=== PATIENT | male | born 1935 | race African-American/Black ===

== ENCOUNTER 2018-03-17 13:02 | Inpatient (IN) ==
[2018-03-17 14:13] LABS: Basophils % 0.4 % (0.0-0.8); Eosinophils # 0.3 10*3/uL (0.0-0.87); Eosinophils % 5.7 % (0.00-10.9); Hemoglobin 7.2 GM/DL (14.0-18.0); Immature Granulocytes % 0.4 %; Immature Granulocytes Absolute 0.02 #; Lymphocytes # 0.9 10*3/uL (1.4-4.0); Lymphocytes % 19.1 % (21.2-54.2); Mean Corpuscular HGB Conc 28.8 GM/DL (32-36); Mean Corpuscular Hemoglobin 22 PG (27-34); Mean Corpuscular Volume 77.9 FL (87-102); Mean Platelet Volume 10.2 FL (9.6-12.0); Monocytes # 0.5 10*3/uL (0.11-0.8); Monocytes % 10.4 % (1.7-12.7); Platelet Count 287 T/CUMM (130-400); Red Blood Count 3.21 MC/CUMM (3.8-5.5); Red Cell Distribution Width 16.7 % (9.3-17.3); White Blood Count 4.7 T/CUMM (4-12)
[2018-03-17 14:32] LABS: Hypochromasia 1+; Microcytosis 1+
[2018-03-17 14:33] LABS: Calcium 8.4 MG/DL (8.5-10.1); Osmolality,Calculated 284.7 MOS/KG (273-304); Potassium 4.8 MMOL/L (3.5-5.1); Target Cells Few
[2018-03-17] MEDS ORDERED: MORPHINE 4 MG/1 ML VIAL IV PRN (14:41)
[2018-03-17] MEDS ORDERED: POTASSIUM CHLORIDE 20 MEQ TABLET PO PRN (14:41)
[2018-03-17] MEDS ORDERED: DOCUSATE SODIUM 100 MG CAPSULE PO PRN (14:41)
[2018-03-17] MEDS ORDERED: MAGNESIUM SULF RIDER 2 GM in PREMIX 1 EACH IV PRN (14:41)
[2018-03-17] MEDS ORDERED: MAGNESIUM SULF RIDER 4 GM in PREMIX 1 EACH IV PRN (14:41)
[2018-03-17] MEDS ORDERED: ACETAMINOPHEN 325 MG TABLET PO PRN (14:41)
[2018-03-17] MEDS ORDERED: ONDANSETRON 4 MG/2 ML VIAL IV PRN (14:41)
[2018-03-17] MEDS ORDERED: hydrALAZINE 20 MG/1 ML VIAL IV PRN (14:45)
[2018-03-17] MEDS ORDERED: diphenhydrAMINE CAP 25 MG CAPSULE PO ONE (14:50)
[2018-03-17] MEDS ORDERED: NALOXONE 0.4 MG/ML VIAL IV PRN (14:50)
[2018-03-17] MEDS ORDERED: DIAZEPAM 5 MG TABLET PO ONE (14:50)
[2018-03-17] MEDS ORDERED: FLUMAZENIL 1 MG/10 ML VIAL IV PRN (14:50)
[2018-03-17] MEDS ORDERED: LIDOCAINE 1%/EPI INJ 20 ML VIAL ONE (15:49)
[2018-03-17] MEDS ORDERED: HEPARIN/NACL 0.9% 2 UNITS/ML 500 ML IV ONE (15:49)
[2018-03-17] MEDS ORDERED: fentaNYL 100 MCG/2 ML VIAL ONE (15:51)
[2018-03-17] MEDS ORDERED: ceFAZolin 1,000 MG VIAL ONE (15:55)
[2018-03-17] MEDS ORDERED: MIDAZOLAM 2 MG/2 ML VIAL ONE (16:05)
[2018-03-17] MEDS: hydrALAZINE 25 MG TABLET PO SCH ×3 (17:18→21:20)
[2018-03-17 18:16] LABS: Troponin I 0.058 NG/ML (0.00-0.045)
[2018-03-17 18:39] LABS: Folate 6.6 NG/ML (5.4-24.0)
[2018-03-17 18:43] LABS: % Iron Saturation 4.2 % (18-50); Ferritin 10.8 ng/ml (26-388)
[2018-03-17] MEDS: DONEPEZIL 10 MG TABLET PO SCH (21:20)
[2018-03-17] MEDS: ZALEPLON 5 MG CAPSULE PO PRN (21:20)
[2018-03-17 21:41] LABS: Troponin I 0.055 NG/ML (0.00-0.045)
[2018-03-18 04:26] LABS: Basophils % 0.2 % (0.0-0.8); Eosinophils # 0.3 10*3/uL (0.0-0.87); Eosinophils % 4.4 % (0.00-10.9); Hematocrit 20.7 VOL% (42.0-52.0); Immature Granulocytes % 0.5 %; Immature Granulocytes Absolute 0.03 #; Lymphocytes # 0.7 10*3/uL (1.4-4.0); Lymphocytes % 11.1 % (21.2-54.2); Mean Corpuscular HGB Conc 29.5 GM/DL (32-36); Mean Corpuscular Hemoglobin 23 PG (27-34); Mean Platelet Volume 9.3 FL (9.6-12.0); Monocytes # 0.5 10*3/uL (0.11-0.8); Monocytes % 8.1 % (1.7-12.7); Neutrophils # 4.8 10*3/uL (1.4-7.4); Neutrophils % 75.7 % (38.7-73.9); Platelet Count 248 T/CUMM (130-400); Red Blood Count 2.69 MC/CUMM (3.8-5.5); Red Cell Distribution Width 16.8 % (9.3-17.3); White Blood Count 6.3 T/CUMM (4-12)
[2018-03-18 04:34] LABS: Hemoglobin 6.1 GM/DL (14.0-18.0)
[2018-03-18 04:46] LABS: Calcium 8.3 MG/DL (8.5-10.1); Osmolality,Calculated 286.7 MOS/KG (273-304)
[2018-03-18] MEDS ORDERED: SODIUM CHLORIDE 0.9% 1,000 ML IV PRN (04:52)
[2018-03-18 04:58] LABS: Albumin 2.6 G/DL (3.4-5.0); Bilirubin,Total 0.8 MG/DL (0.2-1.0); Calcium 8.4 MG/DL (8.5-10.1); Osmolality,Calculated 284.7 MOS/KG (273-304); Potassium 5.2 MMOL/L (3.5-5.1); Risk Ratio 2.04; Total Protein 6.8 G/DL (6.4-8.3); VLDL CHOLESTEROL 11.6 MG/DL
[2018-03-18] MEDS: FERROUS SULFATE 325 MG TABLET PO SCH ×3 (08:59→20:35)
[2018-03-18] MEDS: PANTOPRAZOLE 40 MG TABLET PO SCH (08:59)
[2018-03-18] MEDS: hydrALAZINE 25 MG TABLET PO SCH (08:59)
[2018-03-18] MEDS ORDERED: amLODIPine 5 MG TABLET PO SCH (10:30)
[2018-03-18] MEDS: CARVEDILOL 6.25 MG TABLET PO SCH ×2 (11:07→20:35)
[2018-03-18] MEDS ORDERED: TUBERCULIN SKIN TEST 0.1 ML SYRINGE INTRADERM ONE (13:31)
[2018-03-18] MEDS: ZALEPLON 5 MG CAPSULE PO PRN (20:34)
[2018-03-18] MEDS: DONEPEZIL 10 MG TABLET PO SCH (20:35)
[2018-03-18] MEDS: DOXAZOSIN 1 MG TABLET PO SCH (20:35)
[2018-03-19 05:10] LABS: Hematocrit 29.8 VOL% (42.0-52.0); Hemoglobin 9.3 GM/DL (14.0-18.0)
[2018-03-19 08:44] LABS: Basophils % 0.3 % (0.0-0.8); Eosinophils # 0.2 10*3/uL (0.0-0.87); Eosinophils % 3.8 % (0.00-10.9); Hematocrit 31.4 VOL% (42.0-52.0); Hemoglobin 9.7 GM/DL (14.0-18.0); Immature Granulocytes % 0.3 %; Immature Granulocytes Absolute 0.02 #; Lymphocytes # 0.6 10*3/uL (1.4-4.0); Lymphocytes % 9.9 % (21.2-54.2); Mean Corpuscular HGB Conc 30.9 GM/DL (32-36); Mean Corpuscular Hemoglobin 24 PG (27-34); Mean Corpuscular Volume 77.9 FL (87-102); Mean Platelet Volume 9.3 FL (9.6-12.0); Monocytes # 0.5 10*3/uL (0.11-0.8); Monocytes % 7.6 % (1.7-12.7); Neutrophils # 4.8 10*3/uL (1.4-7.4); Neutrophils % 78.1 % (38.7-73.9); Platelet Count 217 T/CUMM (130-400); Red Blood Count 4.03 MC/CUMM (3.8-5.5); Red Cell Distribution Width 16.9 % (9.3-17.3); White Blood Count 6.1 T/CUMM (4-12)
[2018-03-19 09:00] LABS: Calcium 8.6 MG/DL (8.5-10.1); Osmolality,Calculated 278.8 MOS/KG (273-304); Potassium 4.7 MMOL/L (3.5-5.1)
[2018-03-19] MEDS: CLOPIDOGREL 75 MG TABLET PO SCH (09:04)
[2018-03-19] MEDS: amLODIPine 10 MG TABLET PO SCH (09:04)
[2018-03-19] MEDS: CARVEDILOL 6.25 MG TABLET PO SCH ×2 (09:04→23:37)
[2018-03-19] MEDS: PANTOPRAZOLE 40 MG TABLET PO SCH (09:04)
[2018-03-19] MEDS: FERROUS SULFATE 325 MG TABLET PO SCH ×3 (09:04→23:37)
[2018-03-19] MEDS: DONEPEZIL 10 MG TABLET PO SCH (23:37)
[2018-03-19] MEDS: DOXAZOSIN 1 MG TABLET PO SCH (23:37)
[2018-03-20 04:32] LABS: Basophils % 0.4 % (0.0-0.8); Eosinophils # 0.3 10*3/uL (0.0-0.87); Eosinophils % 4.6 % (0.00-10.9); Hemoglobin 8.3 GM/DL (14.0-18.0); Immature Granulocytes % 0.5 %; Immature Granulocytes Absolute 0.03 #; Lymphocytes # 0.7 10*3/uL (1.4-4.0); Mean Corpuscular HGB Conc 30.7 GM/DL (32-36); Mean Corpuscular Hemoglobin 24 PG (27-34); Mean Corpuscular Volume 77.6 FL (87-102); Mean Platelet Volume 9.5 FL (9.6-12.0); Monocytes # 0.6 10*3/uL (0.11-0.8); Neutrophils # 3.9 10*3/uL (1.4-7.4); Neutrophils % 71.5 % (38.7-73.9); Platelet Count 220 T/CUMM (130-400); Red Blood Count 3.48 MC/CUMM (3.8-5.5); Red Cell Distribution Width 17.1 % (9.3-17.3); White Blood Count 5.5 T/CUMM (4-12)
[2018-03-20 05:05] LABS: Calcium 8.2 MG/DL (8.5-10.1); Osmolality,Calculated 284.7 MOS/KG (273-304); Potassium 4.8 MMOL/L (3.5-5.1)
[2018-03-20] MEDS: CLOPIDOGREL 75 MG TABLET PO SCH (08:46)
[2018-03-20] MEDS: FERROUS SULFATE 325 MG TABLET PO SCH ×3 (08:46→20:36)
[2018-03-20] MEDS: amLODIPine 10 MG TABLET PO SCH (08:46)
[2018-03-20] MEDS: CARVEDILOL 6.25 MG TABLET PO SCH ×2 (08:46→23:21)
[2018-03-20] MEDS: PANTOPRAZOLE 40 MG TABLET PO SCH (08:47)
[2018-03-20] MEDS ORDERED: DOXAZOSIN 1 MG TABLET PO SCH (15:34)
[2018-03-20] MEDS: DONEPEZIL 10 MG TABLET PO SCH (20:36)
[2018-03-21 08:20] LABS: Basophils % 0.5 % (0.0-0.8); Eosinophils # 0.2 10*3/uL (0.0-0.87); Eosinophils % 4.8 % (0.00-10.9); Hematocrit 27.1 VOL% (42.0-52.0); Hemoglobin 8.4 GM/DL (14.0-18.0); Immature Granulocytes % 0.5 %; Immature Granulocytes Absolute 0.02 #; Lymphocytes # 0.7 10*3/uL (1.4-4.0); Lymphocytes % 15.9 % (21.2-54.2); Mean Corpuscular Hemoglobin 24 PG (27-34); Mean Corpuscular Volume 77.2 FL (87-102); Mean Platelet Volume 9.3 FL (9.6-12.0); Monocytes # 0.5 10*3/uL (0.11-0.8); Monocytes % 10.6 % (1.7-12.7); Neutrophils # 2.9 10*3/uL (1.4-7.4); Neutrophils % 67.7 % (38.7-73.9); Platelet Count 208 T/CUMM (130-400); Red Blood Count 3.51 MC/CUMM (3.8-5.5); Red Cell Distribution Width 16.9 % (9.3-17.3); White Blood Count 4.3 T/CUMM (4-12)
[2018-03-21 08:22] LABS: Calcium 8.5 MG/DL (8.5-10.1); Osmolality,Calculated 284.5 MOS/KG (273-304); Potassium 4.7 MMOL/L (3.5-5.1)
[2018-03-21] MEDS: CLOPIDOGREL 75 MG TABLET PO SCH (09:08)
[2018-03-21] MEDS: CARVEDILOL 6.25 MG TABLET PO SCH ×2 (09:09→23:10)
[2018-03-21] MEDS: amLODIPine 10 MG TABLET PO SCH (09:09)
[2018-03-21] MEDS: FERROUS SULFATE 325 MG TABLET PO SCH ×3 (09:09→23:10)
[2018-03-21] MEDS: PANTOPRAZOLE 40 MG TABLET PO SCH (09:09)
[2018-03-21] MEDS ORDERED: DOXAZOSIN 1 MG TABLET PO SCH (12:56)
[2018-03-21] MEDS: DONEPEZIL 10 MG TABLET PO SCH (23:10)
[2018-03-22 04:55] LABS: Basophils % 0.5 % (0.0-0.8); Eosinophils # 0.2 10*3/uL (0.0-0.87); Eosinophils % 5.2 % (0.00-10.9); Hematocrit 24.9 VOL% (42.0-52.0); Hemoglobin 7.6 GM/DL (14.0-18.0); Immature Granulocytes % 0.5 %; Immature Granulocytes Absolute 0.02 #; Lymphocytes # 0.7 10*3/uL (1.4-4.0); Lymphocytes % 16.8 % (21.2-54.2); Mean Corpuscular HGB Conc 30.5 GM/DL (32-36); Mean Corpuscular Hemoglobin 24 PG (27-34); Mean Corpuscular Volume 77.1 FL (87-102); Mean Platelet Volume 9.2 FL (9.6-12.0); Monocytes # 0.5 10*3/uL (0.11-0.8); Monocytes % 11.6 % (1.7-12.7); Neutrophils # 2.8 10*3/uL (1.4-7.4); Neutrophils % 65.4 % (38.7-73.9); Platelet Count 192 T/CUMM (130-400); Red Blood Count 3.23 MC/CUMM (3.8-5.5); Red Cell Distribution Width 17.2 % (9.3-17.3); White Blood Count 4.2 T/CUMM (4-12)
[2018-03-22 05:21] LABS: Calcium 8.2 MG/DL (8.5-10.1); Potassium 5.1 MMOL/L (3.5-5.1)
[2018-03-22] MEDS: CLOPIDOGREL 75 MG TABLET PO SCH (09:36)
[2018-03-22] MEDS: PANTOPRAZOLE 40 MG TABLET PO SCH (09:36)
[2018-03-22] MEDS: CARVEDILOL 6.25 MG TABLET PO SCH (09:36)
[2018-03-22] MEDS: FERROUS SULFATE 325 MG TABLET PO SCH (09:36)
[2018-03-22] MEDS: amLODIPine 10 MG TABLET PO SCH (09:36)
[2018-03-22 12:22] VITALS: BP 134/74
== END 2018-03-22 14:05 | DRG 259 ==
LOC: EDUNIT# → EDBD → N.ED 13:02 → N.EDINP 14:41 → N.CC 15:23 → N.TELES 16:32
PROVIDERS: ADMIT Internal Medicine Interventional Cardiology; ATTEND Hospitalist

== ENCOUNTER 2019-06-10 00:44 | Observation (INO) ==
[2019-06-10] MEDS ORDERED: PANTOPRAZOLE 40 MG VIAL IV STA (01:03)
[2019-06-10] MEDS ORDERED: ONDANSETRON 4 MG/2 ML VIAL IV STA (01:03)
[2019-06-10] MEDS ORDERED: SODIUM CHLORIDE 0.9% 500 ML IV STA (01:03)
[2019-06-10 01:19] LABS: Basophils % 0.2 % (0.0-0.8); Eosinophils # 0.3 10*3/uL (0.0-0.87); Eosinophils % 5.4 % (0.00-10.9); Hematocrit 22.6 VOL% (42.0-52.0); Immature Granulocytes % 0.2 %; Immature Granulocytes Absolute 0.01 #; Lymphocytes # 1.1 10*3/uL (1.4-4.0); Lymphocytes % 21.7 % (21.2-54.2); Mean Corpuscular HGB Conc 28.3 GM/DL (32-36); Mean Corpuscular Volume 79.9 FL (87-102); Mean Platelet Volume 8.9 FL (9.6-12.0); Monocytes % 11.7 % (1.7-12.7); Neutrophils % 60.8 % (38.7-73.9); Platelet Count 248 T/CUMM (130-400); Red Blood Count 2.83 MC/CUMM (3.8-5.5); Red Cell Distribution Width 17.2 % (9.3-17.3)
[2019-06-10 01:22] LABS: Hemoglobin 6.4 GM/DL (14.0-18.0)
[2019-06-10 01:31] LABS: PT Patient Result 10.8 SECS (9.8-11.9)
[2019-06-10 01:42] LABS: Alanine Aminotransferase 9 U/L (16-61); Albumin 2.8 G/DL (3.4-5.0); Alkaline Phosphatase 67 U/L (45-117); Amylase 288 U/L (25-115); Aspartate Amino Transferase 9 U/L (0-37); Bilirubin,Total < 0.39 MG/DL (0.2-1.0); Blood Urea Nitrogen 37 MG/DL (7-18); Calcium 8.2 MG/DL (8.5-10.1); Estimated Glom Filtration Rate 30 ML/MIN; Glucose 80 MG/DL (74-106); Osmolality,Calculated 284.5 MOS/KG (273-304); Total Protein 7.1 G/DL (6.4-8.3)
[2019-06-10] MEDS ORDERED: SODIUM CHLORIDE 0.9% 1,000 ML IV PRN (02:58)
[2019-06-10] MEDS ORDERED: GLUCAGON 1 MG VIAL IM PRN (02:58)
[2019-06-10] MEDS ORDERED: ACETAMINOPHEN 325 MG TABLET PO PRN (02:58)
[2019-06-10] MEDS ORDERED: ONDANSETRON 4 MG/2 ML VIAL IV PRN (02:58)
[2019-06-10] MEDS ORDERED: DEXTROSE 50% 25 GM/50 ML SYRINGE IV PRN (02:58)
[2019-06-10 12:01] VITALS: BP 126/52
[2019-06-10 13:47] LABS: Hematocrit 29.5 VOL% (42.0-52.0); Hemoglobin 8.5 GM/DL (14.0-18.0)
[2019-06-10] MEDS ORDERED: PANTOPRAZOLE 40 MG VIAL IV SCH (21:00)
== END 2019-06-10 16:50 ==
LOC: EDUNIT# → EDBD → N.ED 00:44 → N.EDINP 00:44 → N.3E 04:32
PROVIDERS: ADMIT Family Medicine; ATTEND Family Medicine

== ENCOUNTER 2019-06-24 14:19 | Inpatient (IN) ==
[2019-06-24] MEDS ORDERED: SODIUM CHLORIDE 0.9% 1,000 ML IV STA (14:43)
[2019-06-24 15:38] LABS: Basophils % 0.1 % (0.0-0.8); Hematocrit 34.6 VOL% (42.0-52.0); Hemoglobin 10.2 GM/DL (14.0-18.0); Immature Granulocytes % 2.1 %; Immature Granulocytes Absolute 0.36 #; Lymphocytes % 5.6 % (21.2-54.2); Mean Corpuscular HGB Conc 29.5 GM/DL (32-36); Mean Corpuscular Volume 78.1 FL (87-102); Mean Platelet Volume 10.9 FL (9.6-12.0); Neutrophils % 89.2 % (38.7-73.9); Platelet Count 344 T/CUMM (130-400); Red Blood Count 4.43 MC/CUMM (3.8-5.5); Red Cell Distribution Width 17.8 % (9.3-17.3); White Blood Count 17.6 T/CUMM (4-12)
[2019-06-24 16:00] LABS: Apearance,Urine CLOUDY (Clear); Bacteria,Urine Many /HPF (Few); Bilirubin,Urine Negative (Negative); Blood, Urine Moderate mg/dL (Negative); Glucose,Urine (UA) Negative (Negative); Ketones,Urine Negative (Negative); Mucus,Urine Occasional /LPF (Occasional); Nitrite,Urine Negative (Negative); Protein,Urine 30 MG/DL; Squamous Epithelial Cell,Urine Occasional /HPF (0-10); Urine Color Yellow (Yellow); Urine Specific Gravity 1.014 (1.001-1.035); Urine Urobilinogen < 2.0 EU/DL (0.2-1.0); WBC,Urine 133 /HPF (0-6)
[2019-06-24 16:05] LABS: Alanine Aminotransferase 30 U/L (16-61); Albumin 2.3 G/DL (3.4-5.0); Alkaline Phosphatase 58 U/L (45-117); Aspartate Amino Transferase 121 U/L (0-37); Bilirubin,Total < 0.39 MG/DL (0.2-1.0); Calcium 8.9 MG/DL (8.5-10.1); Estimated Glom Filtration Rate 11 ML/MIN; Total Protein 8.6 G/DL (6.4-8.3)
[2019-06-24 16:06] LABS: Blood Urea Nitrogen 111 MG/DL (7-18); Glucose 104 MG/DL (74-106); Osmolality,Calculated 302.2 MOS/KG (273-304); Troponin I 0.435 NG/ML (0.00-0.045)
[2019-06-24] MEDS ORDERED: CALCIUM GLUCONATE 1,000 MG in SODIUM CHLORIDE 0.9% 100 ML IV ONE (16:09)
[2019-06-24] MEDS ORDERED: SODIUM BICARBONATE 50 MEQ/50 ML VIAL IV STA (16:09)
[2019-06-24] MEDS ORDERED: DEXTROSE 50% 25 GM/50 ML VIAL IV STA (16:09)
[2019-06-24] MEDS ORDERED: INSULIN REGULAR 100 UNIT/ML IV ONE (16:10)
[2019-06-24 16:15] LABS: Band Neutrophils 3 % (0-10); Lymphocytes 4 % (20-55); Segmented Neutrophils 91 % (50-85); Total Cells Counted 100
[2019-06-24] MEDS ORDERED: methylPREDNISolone SOD SUC 125 MG/2 ML VIAL IV STA (16:15)
[2019-06-24] MEDS ORDERED: AZITHROMYCIN INJ 500 MG in SODIUM CHLORIDE 0.9% 250 ML IV STA (16:15)
[2019-06-24 16:16] LABS: Anisocytosis 2+; Hypochromasia Slight; Microcytosis 1+; Platelet Estimate Normal; Poikilocytosis 1+
[2019-06-24 16:16] LABS: Barbiturates Screen,Urine Negative (Negative); Benzodiazepines Screen,Urine Negative (Negative); Cannabinoid Screen,Urine Negative (Negative); Opiate Screen,Urine Negative (Negative); Phencyclidine Screen,Urine Negative (Negative)
[2019-06-24 16:17] LABS: Schistocytes 1+
[2019-06-24] MEDS ORDERED: DEXTROSE 50% 25 GM/50 ML SYRINGE IV ONE (16:58)
[2019-06-24] MEDS ORDERED: CALCIUM GLUCONATE 1,000 MG/10 ML VIAL IV ONE (16:58)
[2019-06-24] MEDS ORDERED: ONDANSETRON 4 MG/2 ML VIAL IV PRN (18:26)
[2019-06-24] MEDS ORDERED: LACTULOSE 20 GM/30 ML UDCUP PO PRN (18:26)
[2019-06-24] MEDS ORDERED: GLUCAGON 1 MG VIAL IM PRN (18:26)
[2019-06-24] MEDS ORDERED: DOCUSATE SODIUM 100 MG CAPSULE PO PRN (18:26)
[2019-06-24] MEDS: SODIUM CHLORIDE 0.9% 1,000 ML IV SCH (19:35)
[2019-06-24 20:04] LABS: INR 1.1; PT Patient Result 11.8 SECS (9.8-11.9)
[2019-06-24] MEDS ORDERED: PIPERACILLIN/TAZOBACTAM 3,375 MG in SODIUM CHLORIDE 0.9% 100 ML IV SCH (21:00)
[2019-06-24] MEDS: ENOXAPARIN 30 MG/0.3 ML SYRINGE SUBCUT SCH (21:15)
[2019-06-24] MEDS: PIPERACILLIN/TAZOBACTAM 3,375 MG in SODIUM CHLORIDE 0.9% 100 ML IV SCH (21:25)
[2019-06-24] MEDS ORDERED: VANCOMYCIN INJ 1,000 MG in SODIUM CHLORIDE 0.9% 250 ML IV PRN (22:00)
[2019-06-25] MEDS ORDERED: VANCOMYCIN INJ 1,000 MG in SODIUM CHLORIDE 0.9% 250 ML IV ONE
[2019-06-25 05:42] LABS: Hematocrit 31.7 VOL% (42.0-52.0); Hemoglobin 9.4 GM/DL (14.0-18.0); Immature Granulocytes % 0.8 %; Immature Granulocytes Absolute 0.08 #; Lymphocytes # 0.5 10*3/uL (1.4-4.0); Lymphocytes % 5.6 % (21.2-54.2); Mean Corpuscular HGB Conc 29.7 GM/DL (32-36); Mean Corpuscular Volume 78.7 FL (87-102); Mean Platelet Volume 10.9 FL (9.6-12.0); Monocytes % 1.8 % (1.7-12.7); Neutrophils % 91.8 % (38.7-73.9); Platelet Count 242 T/CUMM (130-400); Red Blood Count 4.03 MC/CUMM (3.8-5.5); Red Cell Distribution Width 17.6 % (9.3-17.3); White Blood Count 9.6 T/CUMM (4-12)
[2019-06-25 06:08] LABS: Bilirubin,Total 0.6 MG/DL (0.2-1.0); Calcium 8.4 MG/DL (8.5-10.1); Osmolality,Calculated 322.1 MOS/KG (273-304); Total Protein 7.2 G/DL (6.4-8.3)
[2019-06-25 06:14] LABS: Thyroid Stimulating Hormone 0.522 uIU/ml (0.358-3.74)
[2019-06-25] MEDS: PIPERACILLIN/TAZOBACTAM 3,375 MG in SODIUM CHLORIDE 0.9% 100 ML IV SCH ×2 (08:47→22:30)
[2019-06-25] MEDS: PANTOPRAZOLE 40 MG TABLET PO SCH (08:47)
[2019-06-25] MEDS ORDERED: SODIUM BICARBONATE 50 MEQ/50 ML VIAL IV ONE (09:21)
[2019-06-25 09:46] LABS: Atypical Lymphocytes Few; Band Neutrophils 7 % (0-10); Burr Cells Slight; Hypochromasia 1+; Lymphocytes 6 % (20-55); Metamyelocytes 1 %; Microcytosis 2+; Schistocytes Few; Segmented Neutrophils 84 % (50-85); Total Cells Counted 100
[2019-06-25 09:47] LABS: Ovalocytes Few; Platelet Estimate Adequate; Spherocytes Few
[2019-06-25] MEDS: SODIUM CHLORIDE 0.9% 1,000 ML IV SCH (13:08)
[2019-06-25] MEDS: SODIUM BICARB INJ 100 MEQ in DEXTROSE 5% 1,000 ML IV SCH (13:10)
[2019-06-25] MEDS: ENOXAPARIN 30 MG/0.3 ML SYRINGE SUBCUT SCH (20:30)
[2019-06-26] MEDS: SODIUM BICARB INJ 100 MEQ in DEXTROSE 5% 1,000 ML IV SCH ×2 (04:30→18:24)
[2019-06-26 05:50] LABS: Basophils % 0.1 % (0.0-0.8); Hematocrit 27.1 VOL% (42.0-52.0); Hemoglobin 8.2 GM/DL (14.0-18.0); Immature Granulocytes % 0.7 %; Immature Granulocytes Absolute 0.08 #; Lymphocytes # 0.4 10*3/uL (1.4-4.0); Lymphocytes % 3.7 % (21.2-54.2); Mean Corpuscular HGB Conc 30.3 GM/DL (32-36); Mean Corpuscular Volume 74.9 FL (87-102); Mean Platelet Volume 11.5 FL (9.6-12.0); Monocytes % 3.9 % (1.7-12.7); Neutrophils % 91.6 % (38.7-73.9); Platelet Count 238 T/CUMM (130-400); Red Blood Count 3.62 MC/CUMM (3.8-5.5); Red Cell Distribution Width 17.7 % (9.3-17.3); White Blood Count 11.1 T/CUMM (4-12)
[2019-06-26 06:28] LABS: Albumin 1.8 G/DL (3.4-5.0); Bilirubin,Total 0.5 MG/DL (0.2-1.0); Osmolality,Calculated 331.6 MOS/KG (273-304)
[2019-06-26 08:49] LABS: Anisocytosis 2+; Atypical Lymphocytes Few; Band Neutrophils 1 % (0-10); Hypochromasia 3+; Lymphocytes 2 % (20-55); Microcytosis 3+; Nucleated Red Blood Cells 1 (0-5); Poikilocytosis 2+; Segmented Neutrophils 96 % (50-85); Total Cells Counted 100
[2019-06-26 08:50] LABS: Burr Cells Few; Platelet Estimate Normal; Polychromasia Slight; Schistocytes Slight
[2019-06-26] MEDS: PANTOPRAZOLE 40 MG TABLET PO SCH (09:05)
[2019-06-26] MEDS: PIPERACILLIN/TAZOBACTAM 3,375 MG in SODIUM CHLORIDE 0.9% 100 ML IV SCH ×2 (09:05→21:25)
[2019-06-26] MEDS: ENOXAPARIN 30 MG/0.3 ML SYRINGE SUBCUT SCH (21:24)
[2019-06-27 06:33] LABS: Hematocrit 24.4 VOL% (42.0-52.0); Hemoglobin 7.3 GM/DL (14.0-18.0); Immature Granulocytes % 1.8 %; Immature Granulocytes Absolute 0.14 #; Lymphocytes # 0.4 10*3/uL (1.4-4.0); Lymphocytes % 5.3 % (21.2-54.2); Mean Corpuscular HGB Conc 29.9 GM/DL (32-36); Mean Corpuscular Volume 75.5 FL (87-102); Mean Platelet Volume 10.6 FL (9.6-12.0); Monocytes % 5.8 % (1.7-12.7); Neutrophils % 87.1 % (38.7-73.9); Platelet Count 228 T/CUMM (130-400); Red Blood Count 3.23 MC/CUMM (3.8-5.5); Red Cell Distribution Width 17.8 % (9.3-17.3); White Blood Count 7.9 T/CUMM (4-12)
[2019-06-27 07:10] LABS: Albumin 1.8 G/DL (3.4-5.0); Bilirubin,Total 0.4 MG/DL (0.2-1.0); Calcium 7.9 MG/DL (8.5-10.1); Total Protein 6.6 G/DL (6.4-8.3)
[2019-06-27] MEDS: PIPERACILLIN/TAZOBACTAM 3,375 MG in SODIUM CHLORIDE 0.9% 100 ML IV SCH (09:09)
[2019-06-27] MEDS: PANTOPRAZOLE 40 MG TABLET PO SCH (09:09)
[2019-06-27] MEDS: SODIUM BICARB INJ 100 MEQ in DEXTROSE 5% 1,000 ML IV SCH (09:11)
[2019-06-27] MEDS: cefTRIAXone 1,000 MG in SYRINGE 1 EACH IV SCH (16:14)
[2019-06-27] MEDS: ENOXAPARIN 30 MG/0.3 ML SYRINGE SUBCUT SCH (22:06)
[2019-06-28] MEDS: SODIUM BICARB INJ 100 MEQ in DEXTROSE 5% 1,000 ML IV SCH (07:13)
[2019-06-28] MEDS: PANTOPRAZOLE 40 MG TABLET PO SCH ×2 (09:14→09:29)
[2019-06-28 12:32] VITALS: BP 123/76
[2019-06-28] MEDS: cefTRIAXone 1,000 MG in SYRINGE 1 EACH IV SCH (14:46)
== END 2019-06-28 14:50 | disposition home or self-care (01) | DRG 682 ==
LOC: EDUNIT# → N.ED 14:19 → SUPCPDRO 17:17 → N.EDINP 17:17 → SUATTDRO 17:17 → N.EDINP 19:33 → N.2E 20:10
PROVIDERS: ADMIT Family Medicine; ATTEND Internal Medicine

== ENCOUNTER 2019-09-07 12:33 | Observation (INO) ==
[2019-09-07 13:35] LABS: Basophils % 0.2 % (0.0-0.8); Eosinophils # 0.4 10*3/uL (0.0-0.87); Eosinophils % 5.4 % (0.00-10.9); Hematocrit 21.8 VOL% (42.0-52.0); Immature Granulocytes % 0.5 %; Immature Granulocytes Absolute 0.03 #; Lymphocytes # 1.1 10*3/uL (1.4-4.0); Lymphocytes % 16.9 % (21.2-54.2); Mean Corpuscular Volume 79.3 FL (87-102); Mean Platelet Volume 8.8 FL (9.6-12.0); Monocytes % 10.4 % (1.7-12.7); NRBC # 0.02 10*3/uL; Neutrophils % 66.6 % (38.7-73.9); Platelet Count 325 T/CUMM (130-400); Red Blood Count 2.75 MC/CUMM (3.8-5.5); Red Cell Distribution Width 17.2 % (9.3-17.3); White Blood Count 6.5 T/CUMM (4-12)
[2019-09-07 13:36] LABS: PT Patient Result 10.8 SECS (9.8-11.9); Partial Thromboplastin Time 25.6 SECS (23.9-33.8)
[2019-09-07 13:39] LABS: Hemoglobin 6.1 GM/DL (14.0-18.0)
[2019-09-07 13:50] LABS: Alanine Aminotransferase 10 U/L (16-61); Albumin 2.6 G/DL (3.4-5.0); Alkaline Phosphatase 74 U/L (45-117); Aspartate Amino Transferase 9 U/L (0-37); Bilirubin,Total < 0.39 MG/DL (0.2-1.0); Blood Urea Nitrogen 32 MG/DL (7-18); Calcium 8.3 MG/DL (8.5-10.1); Estimated Glom Filtration Rate 36 ML/MIN; Glucose 77 MG/DL (74-106); Osmolality,Calculated 278.8 MOS/KG (273-304); Total Protein 7.6 G/DL (6.4-8.3)
[2019-09-07] MEDS ORDERED: ACETAMINOPHEN 325 MG TABLET PO PRN (14:43)
[2019-09-07] MEDS ORDERED: GLUCAGON 1 MG VIAL IM PRN (14:43)
[2019-09-07] MEDS ORDERED: DEXTROSE 50% 25 GM/50 ML VIAL IV PRN (14:43)
[2019-09-07] MEDS ORDERED: ONDANSETRON 4 MG/2 ML VIAL IV PRN (14:43)
[2019-09-07] MEDS ORDERED: SODIUM CHLORIDE 0.9% 1,000 ML IV PRN (14:47)
[2019-09-07] MEDS ORDERED: SODIUM POLYSTYRENE SULFATE 15 GM/60 ML BOTTLE PO STA (15:36)
[2019-09-08] MEDS ORDERED: FUROSEMIDE 20 MG/2 ML VIAL IV ONE (02:18)
[2019-09-08 06:34] LABS: Basophils % 0.5 % (0.0-0.8); Eosinophils # 0.4 10*3/uL (0.0-0.87); Eosinophils % 4.8 % (0.00-10.9); Hematocrit 31.8 VOL% (42.0-52.0); Hemoglobin 9.5 GM/DL (14.0-18.0); Immature Granulocytes % 0.5 %; Immature Granulocytes Absolute 0.04 #; Lymphocytes # 1.4 10*3/uL (1.4-4.0); Lymphocytes % 18.6 % (21.2-54.2); Mean Corpuscular HGB Conc 29.9 GM/DL (32-36); Mean Corpuscular Volume 83.9 FL (87-102); Mean Platelet Volume 8.5 FL (9.6-12.0); Monocytes % 9.5 % (1.7-12.7); Neutrophils % 66.1 % (38.7-73.9); Platelet Count 304 T/CUMM (130-400); Red Blood Count 3.79 MC/CUMM (3.8-5.5); Red Cell Distribution Width 17.5 % (9.3-17.3); White Blood Count 7.3 T/CUMM (4-12)
[2019-09-08 07:01] LABS: Calcium 8.5 MG/DL (8.5-10.1); Osmolality,Calculated 277.8 MOS/KG (273-304)
[2019-09-08 11:56] VITALS: BP 124/72
== END 2019-09-08 13:30 ==
LOC: EDSEX → EDUNIT# → EDBD → N.EDINP 12:33 → N.ED 12:33 → N.EDINP 17:35 → N.3E 17:46
PROVIDERS: ADMIT Internal Medicine; ATTEND Internal Medicine

== ENCOUNTER 2019-10-07 12:00 | Inpatient (IN) ==
[2019-10-07 14:31] LABS: Basophils % 0.3 % (0.0-0.8); Eosinophils # 0.4 10*3/uL (0.0-0.87); Eosinophils % 3.5 % (0.00-10.9); Hematocrit 24.8 VOL% (42.0-52.0); Hemoglobin 7.3 GM/DL (14.0-18.0); Immature Granulocytes % 0.7 %; Immature Granulocytes Absolute 0.07 #; Lymphocytes # 1.4 10*3/uL (1.4-4.0); Lymphocytes % 14.1 % (21.2-54.2); Mean Corpuscular HGB Conc 29.4 GM/DL (32-36); Mean Corpuscular Volume 82.4 FL (87-102); Monocytes % 8.9 % (1.7-12.7); Neutrophils % 72.5 % (38.7-73.9); Platelet Count 289 T/CUMM (130-400); Red Blood Count 3.01 MC/CUMM (3.8-5.5); Red Cell Distribution Width 17.2 % (9.3-17.3)
[2019-10-07 14:46] LABS: PT Patient Result 10.7 SECS (9.8-11.9)
[2019-10-07 14:52] LABS: Alanine Aminotransferase < 9 U/L (16-61); Albumin 2.8 G/DL (3.4-5.0); Alkaline Phosphatase 70 U/L (45-117); Aspartate Amino Transferase 9 U/L (0-37); Bilirubin,Total < 0.39 MG/DL (0.2-1.0); Blood Urea Nitrogen 29 MG/DL (7-18); Calcium 8.5 MG/DL (8.5-10.1); Estimated Glom Filtration Rate 37 ML/MIN; Glucose 73 MG/DL (74-106); Osmolality,Calculated 283.4 MOS/KG (273-304); Total Protein 7.3 G/DL (6.4-8.3)
[2019-10-07] MEDS ORDERED: SODIUM CHLORIDE 0.9% 1,000 ML IV PRN (16:32)
[2019-10-07] MEDS ORDERED: ACETAMINOPHEN 325 MG TABLET PO PRN (16:52)
[2019-10-07] MEDS ORDERED: GLUCAGON 1 MG VIAL IM PRN (17:01)
[2019-10-07] MEDS ORDERED: DEXTROSE 50% 25 GM/50 ML VIAL IV PRN (17:01)
[2019-10-07] MEDS ORDERED: guaiFENesin/DM ER 600-30 MG TABLET PO PRN (17:01)
[2019-10-07] MEDS ORDERED: POTASSIUM CHLORIDE RIDER 10 MEQ in PREMIX 1 EACH IV PRN (17:01)
[2019-10-07] MEDS ORDERED: hydrALAZINE 20 MG/1 ML VIAL IV PRN (17:01)
[2019-10-07] MEDS ORDERED: ONDANSETRON 4 MG/2 ML VIAL IV PRN (17:01)
[2019-10-07] MEDS ORDERED: DOCUSATE SODIUM 100 MG CAPSULE PO PRN (17:01)
[2019-10-07] MEDS ORDERED: MAGNESIUM SULF RIDER 4 GM in PREMIX 1 EACH IV PRN (17:01)
[2019-10-07] MEDS ORDERED: traZODone 50 MG TABLET PO PRN (17:01)
[2019-10-07] MEDS ORDERED: SIMETHICONE CHEW 125 MG TABLET PO PRN (17:01)
[2019-10-07] MEDS ORDERED: BISACODYL 5 MG TABLET PO PRN (17:01)
[2019-10-07] MEDS ORDERED: ZALEPLON 5 MG CAPSULE PO PRN (17:01)
[2019-10-07] MEDS ORDERED: LACTULOSE 20 GM/30 ML UDCUP PO PRN (17:01)
[2019-10-07] MEDS ORDERED: MAGNESIUM SULF RIDER 2 GM in PREMIX 1 EACH IV PRN (17:01)
[2019-10-07] MEDS ORDERED: ALUMINUM/MAGNES/SIMETH MAX STR 30 ML UDCUP PO PRN (17:01)
[2019-10-07 18:54] LABS: Apearance,Urine CLEAR (Clear); Bilirubin,Urine Negative (Negative); Blood, Urine Negative (Negative); Glucose,Urine (UA) Negative (Negative); Ketones,Urine Negative (Negative); Mucus,Urine Occasional /LPF (Occasional); Nitrite,Urine Negative (Negative); Protein,Urine Negative; RBC,Urine 1 /HPF (0-4); Squamous Epithelial Cell,Urine Occasional /HPF (0-10); Urine Color Straw (Yellow); Urine Specific Gravity 1.011 (1.001-1.035); Urine Urobilinogen < 2.0 EU/DL (0.2-1.0); WBC,Urine <1 /HPF (0-6)
[2019-10-07 21:59] LABS: Hematocrit 21.2 VOL% (42.0-52.0)
[2019-10-07 22:00] LABS: Hemoglobin 6.2 GM/DL (14.0-18.0)
[2019-10-07] MEDS: FERROUS SULFATE 325 MG TABLET PO SCH (23:22)
[2019-10-07] MEDS: carvediloL 6.25 MG TABLET PO SCH (23:22)
[2019-10-07] MEDS: DOXAZOSIN 1 MG TABLET PO SCH (23:22)
[2019-10-07] MEDS: DONEPEZIL 10 MG TABLET PO SCH (23:22)
[2019-10-08] MEDS ORDERED: SODIUM CHLORIDE 0.9% 1,000 ML IV PRN (06:45)
[2019-10-08] MEDS: carvediloL 6.25 MG TABLET PO SCH ×2 (09:02→16:11)
[2019-10-08] MEDS: FERROUS SULFATE 325 MG TABLET PO SCH ×3 (09:02→21:01)
[2019-10-08] MEDS: MULTIVITAMIN (CENTRUM) TABLET PO SCH (09:02)
[2019-10-08 12:20] LABS: Basophils % 0.4 % (0.0-0.8); Eosinophils # 0.3 10*3/uL (0.0-0.87); Eosinophils % 3.9 % (0.00-10.9); Hematocrit 33.7 VOL% (42.0-52.0); Immature Granulocytes % 0.4 %; Immature Granulocytes Absolute 0.03 #; Lymphocytes # 0.9 10*3/uL (1.4-4.0); Lymphocytes % 10.9 % (21.2-54.2); Mean Corpuscular HGB Conc 31.2 GM/DL (32-36); Mean Corpuscular Volume 81.8 FL (87-102); Neutrophils % 76.4 % (38.7-73.9); Platelet Count 258 T/CUMM (130-400); Red Cell Distribution Width 16.7 % (9.3-17.3); White Blood Count 7.9 T/CUMM (4-12)
[2019-10-08 12:22] LABS: Hemoglobin 10.5 GM/DL (14.0-18.0); Red Blood Count 4.12 MC/CUMM (3.8-5.5)
[2019-10-08 12:35] LABS: % Iron Saturation 17.1 % (18-50); Ferritin 27.6 ng/ml (26-388)
[2019-10-08 12:40] LABS: Folate 12.8 NG/ML (5.4-24.0)
[2019-10-08 12:41] LABS: Albumin 2.6 G/DL (3.4-5.0); Bilirubin,Total 0.5 MG/DL (0.2-1.0); Calcium 9.2 MG/DL (8.5-10.1); Osmolality,Calculated 283.3 MOS/KG (273-304); Total Protein 7.4 G/DL (6.4-8.3)
[2019-10-08] MEDS ORDERED: SODIUM POLYSTYRENE SULFATE 15 GM/60 ML BOTTLE PO STA (16:56)
[2019-10-08] MEDS: DOXAZOSIN 1 MG TABLET PO SCH (21:01)
[2019-10-08] MEDS: DONEPEZIL 10 MG TABLET PO SCH (21:01)
[2019-10-09 07:16] LABS: Alanine Aminotransferase < 6 U/L (16-61); Albumin 2.5 G/DL (3.4-5.0); Alkaline Phosphatase 67 U/L (45-117); Aspartate Amino Transferase 8 U/L (0-37); Blood Urea Nitrogen 24 MG/DL (7-18); Estimated Glom Filtration Rate 38 ML/MIN; Glucose 75 MG/DL (74-106); Osmolality,Calculated 283.3 MOS/KG (273-304); Total Protein 7.3 G/DL (6.4-8.3)
[2019-10-09] MEDS: MULTIVITAMIN (CENTRUM) TABLET PO SCH (09:41)
[2019-10-09] MEDS: FERROUS SULFATE 325 MG TABLET PO SCH ×3 (09:41→20:57)
[2019-10-09] MEDS: carvediloL 6.25 MG TABLET PO SCH ×2 (09:41→17:03)
[2019-10-09] MEDS: DONEPEZIL 10 MG TABLET PO SCH (20:57)
[2019-10-09] MEDS: DOXAZOSIN 1 MG TABLET PO SCH (20:57)
[2019-10-10 06:53] LABS: Alanine Aminotransferase < 6 U/L (16-61); Albumin 2.4 G/DL (3.4-5.0); Alkaline Phosphatase 59 U/L (45-117); Aspartate Amino Transferase 12 U/L (0-37); Bilirubin,Total < 0.39 MG/DL (0.2-1.0); Blood Urea Nitrogen 24 MG/DL (7-18); Calcium 8.7 MG/DL (8.5-10.1); Estimated Glom Filtration Rate 38 ML/MIN; Glucose 79 MG/DL (74-106); Osmolality,Calculated 279.5 MOS/KG (273-304); Total Protein 7.1 G/DL (6.4-8.3)
[2019-10-10 07:37] LABS: Basophils % 0.3 % (0.0-0.8); Eosinophils # 0.4 10*3/uL (0.0-0.87); Eosinophils % 5.6 % (0.00-10.9); Hematocrit 32.8 VOL% (42.0-52.0); Hemoglobin 10.4 GM/DL (14.0-18.0); Immature Granulocytes % 0.4 %; Immature Granulocytes Absolute 0.03 #; Lymphocytes # 1.1 10*3/uL (1.4-4.0); Lymphocytes % 15.3 % (21.2-54.2); Mean Corpuscular HGB Conc 31.7 GM/DL (32-36); Mean Corpuscular Volume 80.4 FL (87-102); Mean Platelet Volume 8.6 FL (9.6-12.0); Monocytes % 10.4 % (1.7-12.7); Platelet Count 243 T/CUMM (130-400); Red Blood Count 4.08 MC/CUMM (3.8-5.5); Red Cell Distribution Width 16.5 % (9.3-17.3); White Blood Count 7.1 T/CUMM (4-12)
[2019-10-10] MEDS: SODIUM CHLORIDE 0.9% 500 ML IV SCH ×2 (07:50→17:02)
[2019-10-10] MEDS ORDERED: ETOMIDATE 20 MG/10 ML VIAL IV ONE (09:00)
[2019-10-10] MEDS ORDERED: propofoL 200 MG/20 ML VIAL IV ONE (09:00)
[2019-10-10] MEDS ORDERED: LIDOCAINE 2% 5 ML VIAL ONE (09:00)
[2019-10-10] MEDS: MULTIVITAMIN (CENTRUM) TABLET PO SCH (11:31)
[2019-10-10] MEDS: FERROUS SULFATE 325 MG TABLET PO SCH ×3 (11:31→21:42)
[2019-10-10] MEDS: carvediloL 6.25 MG TABLET PO SCH ×2 (11:31→17:06)
[2019-10-10] MEDS ORDERED: POLYETHYLENE GLYCOL 3350/ELECTROLYTES 4,000 ML BOTTLE NG ONE (18:00)
[2019-10-10] MEDS ORDERED: MAGNESIUM CITRATE 300 ML BOTTLE PO ONE (21:00)
[2019-10-10] MEDS: PANTOPRAZOLE 40 MG TABLET PO SCH (21:42)
[2019-10-10] MEDS: DONEPEZIL 10 MG TABLET PO SCH (21:42)
[2019-10-10] MEDS: DOXAZOSIN 1 MG TABLET PO SCH (21:42)
[2019-10-11] MEDS: SODIUM CHLORIDE 0.9% 500 ML IV SCH ×2 (02:57→13:01)
[2019-10-11 05:22] LABS: Basophils % 0.5 % (0.0-0.8); Eosinophils # 0.4 10*3/uL (0.0-0.87); Eosinophils % 5.2 % (0.00-10.9); Hematocrit 35.6 VOL% (42.0-52.0); Hemoglobin 10.9 GM/DL (14.0-18.0); Immature Granulocytes % 0.4 %; Immature Granulocytes Absolute 0.03 #; Lymphocytes % 13.5 % (21.2-54.2); Mean Corpuscular HGB Conc 30.6 GM/DL (32-36); Mean Corpuscular Volume 82.4 FL (87-102); Mean Platelet Volume 8.8 FL (9.6-12.0); Monocytes % 7.9 % (1.7-12.7); Neutrophils % 72.5 % (38.7-73.9); Platelet Count 284 T/CUMM (130-400); Red Blood Count 4.32 MC/CUMM (3.8-5.5); Red Cell Distribution Width 16.7 % (9.3-17.3); White Blood Count 7.5 T/CUMM (4-12)
[2019-10-11 05:44] LABS: Alanine Aminotransferase < 9 U/L (16-61); Albumin 2.6 G/DL (3.4-5.0); Alkaline Phosphatase 75 U/L (45-117); Aspartate Amino Transferase 14 U/L (0-37); Blood Urea Nitrogen 22 MG/DL (7-18); Calcium 9.2 MG/DL (8.5-10.1); Estimated Glom Filtration Rate 35 ML/MIN; Glucose 89 MG/DL (74-106); Osmolality,Calculated 280.4 MOS/KG (273-304); Total Protein 7.7 G/DL (6.4-8.3)
[2019-10-11] MEDS: PANTOPRAZOLE 40 MG TABLET PO SCH ×2 (06:20→21:57)
[2019-10-11] MEDS ORDERED: GLYCOPYRROLATE 0.4 MG/2 ML VIAL ONE (09:00)
[2019-10-11] MEDS ORDERED: PHENYLEPHRINE 1 MG/10 ML SYRINGE IV ONE (09:00)
[2019-10-11] MEDS ORDERED: LIDOCAINE 100 MG/5 ML SYRINGE ONE (09:00)
[2019-10-11] MEDS ORDERED: propofoL 200 MG/20 ML VIAL IV ONE (09:00)
[2019-10-11] MEDS: FERROUS SULFATE 325 MG TABLET PO SCH ×3 (10:04→21:56)
[2019-10-11] MEDS: carvediloL 6.25 MG TABLET PO SCH ×2 (10:04→16:39)
[2019-10-11] MEDS: MULTIVITAMIN (CENTRUM) TABLET PO SCH (10:04)
[2019-10-11] MEDS: DOXAZOSIN 1 MG TABLET PO SCH (21:56)
[2019-10-11] MEDS: DONEPEZIL 10 MG TABLET PO SCH (21:57)
[2019-10-12 06:21] LABS: Basophils % 0.5 % (0.0-0.8); Eosinophils # 0.3 10*3/uL (0.0-0.87); Eosinophils % 4.4 % (0.00-10.9); Hematocrit 35.7 VOL% (42.0-52.0); Hemoglobin 10.7 GM/DL (14.0-18.0); Immature Granulocytes % 0.5 %; Immature Granulocytes Absolute 0.03 #; Lymphocytes # 0.8 10*3/uL (1.4-4.0); Lymphocytes % 12.2 % (21.2-54.2); Mean Corpuscular Volume 83.2 FL (87-102); Mean Platelet Volume 9.1 FL (9.6-12.0); Monocytes % 7.2 % (1.7-12.7); Neutrophils % 75.2 % (38.7-73.9); Platelet Count 252 T/CUMM (130-400); Red Blood Count 4.29 MC/CUMM (3.8-5.5); Red Cell Distribution Width 16.5 % (9.3-17.3); White Blood Count 6.7 T/CUMM (4-12)
[2019-10-12] MEDS ORDERED: ERTAPENEM 1,000 MG in SODIUM CHLORIDE 0.9% 100 ML IV ONE (06:30)
[2019-10-12 06:51] LABS: Alanine Aminotransferase < 9 U/L (16-61); Albumin 2.5 G/DL (3.4-5.0); Alkaline Phosphatase 53 U/L (45-117); Aspartate Amino Transferase 10 U/L (0-37); Blood Urea Nitrogen 18 MG/DL (7-18); Calcium 9.1 MG/DL (8.5-10.1); Estimated Glom Filtration Rate 34 ML/MIN; Glucose 58 MG/DL (74-106); Osmolality,Calculated 274.7 MOS/KG (273-304); Total Protein 7.7 G/DL (6.4-8.3)
[2019-10-12] MEDS: PANTOPRAZOLE 40 MG TABLET PO SCH ×3 (07:29→18:19)
[2019-10-12] MEDS ORDERED: ALVIMOPAN 12 MG CAPSULE PO ONE (08:00)
[2019-10-12] MEDS ORDERED: GABAPENTIN 300 MG CAPSULE PO ONE (08:00)
[2019-10-12] MEDS: carvediloL 6.25 MG TABLET PO SCH ×2 (10:18→16:36)
[2019-10-12] MEDS: MULTIVITAMIN (CENTRUM) TABLET PO SCH (10:19)
[2019-10-12] MEDS: FERROUS SULFATE 325 MG TABLET PO SCH ×3 (10:19→20:17)
[2019-10-12] MEDS: DEXTROSE 5% NACL 0.45% 1,000 ML IV SCH (12:34)
[2019-10-12] MEDS: DOXAZOSIN 1 MG TABLET PO SCH (20:16)
[2019-10-12] MEDS: DONEPEZIL 10 MG TABLET PO SCH (20:17)
[2019-10-13] MEDS: DEXTROSE 5% NACL 0.45% 1,000 ML IV SCH (05:01)
[2019-10-13 05:47] LABS: Basophils % 0.4 % (0.0-0.8); Eosinophils # 0.3 10*3/uL (0.0-0.87); Eosinophils % 5.5 % (0.00-10.9); Hematocrit 35.1 VOL% (42.0-52.0); Hemoglobin 10.8 GM/DL (14.0-18.0); Immature Granulocytes % 0.4 %; Immature Granulocytes Absolute 0.02 #; Lymphocytes # 0.9 10*3/uL (1.4-4.0); Lymphocytes % 15.4 % (21.2-54.2); Mean Corpuscular HGB Conc 30.8 GM/DL (32-36); Mean Corpuscular Volume 81.1 FL (87-102); Neutrophils % 68.3 % (38.7-73.9); Platelet Count 228 T/CUMM (130-400); Red Blood Count 4.33 MC/CUMM (3.8-5.5); Red Cell Distribution Width 16.5 % (9.3-17.3); White Blood Count 5.6 T/CUMM (4-12)
[2019-10-13] MEDS: PANTOPRAZOLE 40 MG TABLET PO SCH ×3 (06:02→18:14)
[2019-10-13 06:10] LABS: Calcium 8.9 MG/DL (8.5-10.1); Osmolality,Calculated 278.7 MOS/KG (273-304)
[2019-10-13 06:33] LABS: Alanine Aminotransferase < 6 U/L (16-61); Albumin 2.6 G/DL (3.4-5.0); Alkaline Phosphatase 78 U/L (45-117); Aspartate Amino Transferase 17 U/L (0-37); Blood Urea Nitrogen 22 MG/DL (7-18); Calcium 8.9 MG/DL (8.5-10.1); Estimated Glom Filtration Rate 28 ML/MIN; Glucose 92 MG/DL (74-106); Osmolality,Calculated 277.7 MOS/KG (273-304); Total Protein 7.2 G/DL (6.4-8.3)
[2019-10-13] MEDS: carvediloL 6.25 MG TABLET PO SCH ×3 (09:08→17:44)
[2019-10-13] MEDS: FERROUS SULFATE 325 MG TABLET PO SCH ×4 (09:08→21:48)
[2019-10-13] MEDS: MULTIVITAMIN (CENTRUM) TABLET PO SCH ×2 (09:08→09:12)
[2019-10-13 09:49] LABS: ABG Base Excess -13.7 MMOL/L (-2.5-2.5); ABG HCO3 13.8 MMOL/L (20-26); ABG PCO2 27.1 MM HG (35-48); ABG PH 7.262 (7.35-7.45); ABG TCO2 11.3 MMOL/L (23-27); Pt O2 Delivery Device Room Air
[2019-10-13] MEDS: SODIUM BICARB INJ 100 MEQ in DEXTROSE 5% 1,000 ML IV SCH (13:50)
[2019-10-13] MEDS: DOXAZOSIN 1 MG TABLET PO SCH (21:48)
[2019-10-13] MEDS: DONEPEZIL 10 MG TABLET PO SCH (21:48)
[2019-10-14] MEDS: SODIUM BICARB INJ 100 MEQ in DEXTROSE 5% 1,000 ML IV SCH ×2 (00:01→13:26)
[2019-10-14 04:29] LABS: Basophils % 0.5 % (0.0-0.8); Eosinophils # 0.3 10*3/uL (0.0-0.87); Eosinophils % 5.7 % (0.00-10.9); Hematocrit 29.4 VOL% (42.0-52.0); Hemoglobin 9.4 GM/DL (14.0-18.0); Immature Granulocytes % 0.3 %; Immature Granulocytes Absolute 0.02 #; Lymphocytes # 0.9 10*3/uL (1.4-4.0); Lymphocytes % 15.7 % (21.2-54.2); Mean Platelet Volume 8.9 FL (9.6-12.0); Monocytes % 11.8 % (1.7-12.7); Platelet Count 212 T/CUMM (130-400); Red Blood Count 3.77 MC/CUMM (3.8-5.5); Red Cell Distribution Width 16.6 % (9.3-17.3); White Blood Count 5.8 T/CUMM (4-12)
[2019-10-14 04:47] LABS: Calcium 8.1 MG/DL (8.5-10.1); Osmolality,Calculated 280.7 MOS/KG (273-304)
[2019-10-14] MEDS: carvediloL 6.25 MG TABLET PO SCH ×2 (10:20→20:06)
[2019-10-14] MEDS: PANTOPRAZOLE 40 MG TABLET PO SCH ×2 (10:20→21:29)
[2019-10-14] MEDS: MULTIVITAMIN (CENTRUM) TABLET PO SCH (10:20)
[2019-10-14] MEDS: FERROUS SULFATE 325 MG TABLET PO SCH ×3 (10:20→21:29)
[2019-10-14] MEDS ORDERED: BUPIVACAINE MPF 0.25% 30 ML VIAL ONE (13:12)
[2019-10-14] MEDS ORDERED: TISSUE ADHESIVE 1 EACH APPLICATOR TOP ONE (13:12)
[2019-10-14] MEDS ORDERED: LIDOCAINE 1%/EPI INJ 20 ML VIAL ONE (13:12)
[2019-10-14] MEDS ORDERED: DEXAMETHASONE 4 MG/1 ML VIAL ONE ×2 (13:26→18:28)
[2019-10-14] MEDS ORDERED: LIDOCAINE 2% 5 ML VIAL ONE (13:26)
[2019-10-14] MEDS ORDERED: ROPIVACAINE 0.5% 30 ML VIAL ONE (13:26)
[2019-10-14] MEDS ORDERED: SODIUM CHLORIDE 0.9% 1,000 ML IV PRN (13:26)
[2019-10-14 14:28] LABS: ABG Base Excess -4.8 MMOL/L (-2.5-2.5); ABG HCO3 20.5 MMOL/L (20-26); ABG Oxygen Saturation 99.9 % (95-100); ABG PCO2 34.9 MM HG (35-48); ABG PH 7.366 (7.35-7.45); ABG TCO2 18.4 MMOL/L (23-27); Glucose Heart Surgery 101 MG/DL (74-106); Hematocrit Heart Surgery 28.2 PERCENT (42-52); Hemoglobin Heart Surgery 9.1 G/DL (14.0-18.0); Ionized Calcium Arterial 1.15 MMOL/L (1.21-1.46); PCO2 Patient Temp Arterial 34.9 MMHG; PH Patient Temp Arterial 7.366; Patient Temperature 37 CELCIUS; Potassium Heart/CVR 3.7 MMOL/L (3.5-5.1); Sodium Heart/CVR 136 MMOL/L (135-145)
[2019-10-14] MEDS ORDERED: PHENYLEPHRINE DRIP 20 MG/250 ML PREMIX IV ONE (18:26)
[2019-10-14] MEDS ORDERED: HEPARIN/NACL 0.9% 2 UNITS/ML 500 ML IV ONE (18:26)
[2019-10-14] MEDS ORDERED: CALCIUM CHLORIDE 1,000 MG/10 ML VIAL IV ONE (18:26)
[2019-10-14] MEDS ORDERED: ALBUMIN 5% 12.5 GM/250 ML VIAL IV ONE (18:26)
[2019-10-14] MEDS ORDERED: fentaNYL 100 MCG/2 ML VIAL ONE (18:27)
[2019-10-14] MEDS ORDERED: KETAMINE 500 MG/10 ML VIAL ONE (18:27)
[2019-10-14] MEDS ORDERED: GLYCOPYRROLATE 0.4 MG/2 ML VIAL ONE (18:28)
[2019-10-14] MEDS ORDERED: NEOSTIGMINE 10 MG/10 ML VIAL ONE (18:28)
[2019-10-14] MEDS ORDERED: ePHEDrine 50 MG/ML VIAL ONE (18:28)
[2019-10-14] MEDS ORDERED: SEVOFLURANE 1 UNIT/15 MINUTE INH ONE (18:28)
[2019-10-14] MEDS ORDERED: ONDANSETRON 4 MG/2 ML VIAL ONE (18:28)
[2019-10-14] MEDS ORDERED: SODIUM CHLORIDE 0.9% 1,000 ML IV ONE (18:28)
[2019-10-14] MEDS ORDERED: LACTATED RINGERS 1,000 ML IV ONE (18:28)
[2019-10-14] MEDS ORDERED: ROCURONIUM 100 MG/10 ML VIAL IV ONE (18:28)
[2019-10-14 19:49] LABS: ABG Base Excess -6.5 MMOL/L (-2.5-2.5); ABG HCO3 19.1 MMOL/L (20-26); ABG Oxygen Saturation 98.9 % (95-100); ABG PCO2 33.2 MM HG (35-48); ABG PH 7.349 (7.35-7.45); ABG TCO2 16.7 MMOL/L (23-27)
[2019-10-14 19:50] LABS: Eosinophils % 0.2 % (0.00-10.9); Hematocrit 30.6 VOL% (42.0-52.0); Hemoglobin 9.9 GM/DL (14.0-18.0); Immature Granulocytes % 0.5 %; Immature Granulocytes Absolute 0.02 #; Lymphocytes # 0.5 10*3/uL (1.4-4.0); Lymphocytes % 11.2 % (21.2-54.2); Mean Corpuscular HGB Conc 32.4 GM/DL (32-36); Mean Corpuscular Volume 78.5 FL (87-102); Mean Platelet Volume 8.9 FL (9.6-12.0); Monocytes % 5.6 % (1.7-12.7); Neutrophils % 82.5 % (38.7-73.9); Platelet Count 222 T/CUMM (130-400); Red Cell Distribution Width 16.8 % (9.3-17.3); White Blood Count 4.1 T/CUMM (4-12)
[2019-10-14 20:28] LABS: Band Neutrophils 2 % (0-10); Lymphocytes 13 % (20-55); Microcytosis 2+; Segmented Neutrophils 84 % (50-85); Total Cells Counted 100
[2019-10-14 20:29] LABS: Burr Cells 2+; Calcium 8.6 MG/DL (8.5-10.1); Hypochromasia 3+; Osmolality,Calculated 282.8 MOS/KG (273-304)
[2019-10-14 20:30] LABS: Platelet Estimate Normal
[2019-10-14] MEDS: DONEPEZIL 10 MG TABLET PO SCH (21:29)
[2019-10-14] MEDS: DOXAZOSIN 1 MG TABLET PO SCH (21:29)
[2019-10-14] MEDS: HYDROmorphone 2 MG/1 ML VIAL IV PRN (22:59)
[2019-10-15] MEDS: SODIUM BICARB INJ 100 MEQ in DEXTROSE 5% 1,000 ML IV SCH (00:46)
[2019-10-15] MEDS ORDERED: SODIUM CHLORIDE 0.9% 1,000 ML IV ONE (03:10)
[2019-10-15 03:31] LABS: ABG Base Excess -4.1 MMOL/L (-2.5-2.5); ABG Oxygen Saturation 99.2 % (95-100); ABG PCO2 40.4 MM HG (35-48); ABG PH 7.333 (7.35-7.45); ABG TCO2 19.8 MMOL/L (23-27)
[2019-10-15 03:32] LABS: Basophils % 0.1 % (0.0-0.8); Hematocrit 29.7 VOL% (42.0-52.0); Hemoglobin 9.4 GM/DL (14.0-18.0); Immature Granulocytes % 0.3 %; Immature Granulocytes Absolute 0.03 #; Lymphocytes # 0.4 10*3/uL (1.4-4.0); Lymphocytes % 3.6 % (21.2-54.2); Mean Corpuscular HGB Conc 31.6 GM/DL (32-36); Mean Corpuscular Volume 79.4 FL (87-102); Mean Platelet Volume 9.2 FL (9.6-12.0); Monocytes % 5.2 % (1.7-12.7); Neutrophils % 90.8 % (38.7-73.9); Platelet Count 231 T/CUMM (130-400); Red Blood Count 3.74 MC/CUMM (3.8-5.5); White Blood Count 9.9 T/CUMM (4-12)
[2019-10-15 03:47] LABS: Osmolality,Calculated 280.8 MOS/KG (273-304)
[2019-10-15 04:33] LABS: Band Neutrophils 4 % (0-10); Lymphocytes 3 % (20-55); Segmented Neutrophils 89 % (50-85); Total Cells Counted 100
[2019-10-15 04:34] LABS: Anisocytosis 1+
[2019-10-15 04:35] LABS: Platelet Estimate Normal
[2019-10-15] MEDS: MULTIVITAMIN (CENTRUM) TABLET PO SCH (08:49)
[2019-10-15] MEDS: PANTOPRAZOLE 40 MG TABLET PO SCH (08:49)
[2019-10-15] MEDS: FERROUS SULFATE 325 MG TABLET PO SCH (08:49)
[2019-10-15] MEDS: carvediloL 6.25 MG TABLET PO SCH (08:49)
[2019-10-15] MEDS ORDERED: MAGNESIUM SULF RIDER 2 GM in PREMIX 1 EACH IV ONE (11:36)
[2019-10-15] MEDS: METOPROLOL TARTRATE 5 MG/5 ML VIAL IV SCH ×2 (12:09→18:00)
[2019-10-15] MEDS: DEXTROSE 5% NACL 0.45% 1,000 ML IV SCH (12:17)
[2019-10-15] MEDS ORDERED: amLODIPine 2.5 MG TABLET PO SCH (14:13)
[2019-10-15] MEDS: PANTOPRAZOLE 40 MG VIAL IV SCH (21:40)
[2019-10-16] MEDS: DEXTROSE 5% NACL 0.45% 1,000 ML IV SCH ×2 (01:16→13:34)
[2019-10-16] MEDS: METOPROLOL TARTRATE 5 MG/5 ML VIAL IV SCH ×4 (01:16→18:02)
[2019-10-16] MEDS: HYDROmorphone 2 MG/1 ML VIAL IV PRN (05:45)
[2019-10-16 06:35] LABS: Basophils % 0.1 % (0.0-0.8); Eosinophils # 0.1 10*3/uL (0.0-0.87); Eosinophils % 0.5 % (0.00-10.9); Hematocrit 27.2 VOL% (42.0-52.0); Hemoglobin 8.7 GM/DL (14.0-18.0); Immature Granulocytes % 0.4 %; Immature Granulocytes Absolute 0.04 #; Lymphocytes # 0.7 10*3/uL (1.4-4.0); Mean Corpuscular Volume 78.6 FL (87-102); Mean Platelet Volume 9.4 FL (9.6-12.0); Monocytes % 5.7 % (1.7-12.7); Neutrophils % 86.3 % (38.7-73.9); Platelet Count 249 T/CUMM (130-400); Red Blood Count 3.46 MC/CUMM (3.8-5.5); Red Cell Distribution Width 17.4 % (9.3-17.3); White Blood Count 10.3 T/CUMM (4-12)
[2019-10-16 06:47] LABS: Calcium 7.7 MG/DL (8.5-10.1); Osmolality,Calculated 277.8 MOS/KG (273-304)
[2019-10-16] MEDS: PANTOPRAZOLE 40 MG VIAL IV SCH ×2 (09:11→20:35)
[2019-10-16 15:30] LABS: Apearance,Urine Slightly Hazy (Clear); Bacteria,Urine Occasional /HPF (Few); Bilirubin,Urine Negative (Negative); Blood, Urine Moderate mg/dL (Negative); Glucose,Urine (UA) Negative (Negative); Hyaline Casts,Urine 11 /LPF (0-3); Ketones,Urine Negative (Negative); Mucus,Urine Occasional /LPF (Occasional); Nitrite,Urine Negative (Negative); Protein,Urine Negative; RBC,Urine 12 /HPF (0-4); Squamous Epithelial Cell,Urine Occasional /HPF (0-10); Urine Color Yellow (Yellow); Urine Specific Gravity 1.008 (1.001-1.035); Urine Urobilinogen < 2.0 EU/DL (0.2-1.0); WBC,Urine 34 /HPF (0-6)
[2019-10-17] MEDS: METOPROLOL TARTRATE 5 MG/5 ML VIAL IV SCH ×2 (01:17→06:25)
[2019-10-17] MEDS: DEXTROSE 5% NACL 0.45% 1,000 ML IV SCH ×2 (01:22→11:24)
[2019-10-17 06:12] LABS: Basophils % 0.2 % (0.0-0.8); Eosinophils # 0.2 10*3/uL (0.0-0.87); Eosinophils % 1.9 % (0.00-10.9); Hematocrit 25.4 VOL% (42.0-52.0); Immature Granulocytes % 0.4 %; Immature Granulocytes Absolute 0.04 #; Lymphocytes # 0.8 10*3/uL (1.4-4.0); Lymphocytes % 8.3 % (21.2-54.2); Mean Corpuscular HGB Conc 31.5 GM/DL (32-36); Mean Corpuscular Volume 79.9 FL (87-102); Mean Platelet Volume 9.3 FL (9.6-12.0); Monocytes % 6.2 % (1.7-12.7); Platelet Count 216 T/CUMM (130-400); Red Blood Count 3.18 MC/CUMM (3.8-5.5); Red Cell Distribution Width 17.4 % (9.3-17.3); White Blood Count 9.6 T/CUMM (4-12)
[2019-10-17 06:36] LABS: Calcium 8.3 MG/DL (8.5-10.1); Osmolality,Calculated 279.7 MOS/KG (273-304)
[2019-10-17] MEDS: HYDROmorphone 2 MG/1 ML VIAL IV PRN (08:04)
[2019-10-17] MEDS: PANTOPRAZOLE 40 MG VIAL IV SCH ×2 (09:30→21:11)
[2019-10-17] MEDS ORDERED: hydrALAZINE 20 MG/1 ML VIAL IV PRN (09:57)
[2019-10-17] MEDS ORDERED: METOPROLOL TARTRATE 5 MG/5 ML VIAL IV PRN (09:59)
[2019-10-17] MEDS: amLODIPine 5 MG TABLET PO SCH (11:29)
[2019-10-18 04:43] LABS: Basophils % 0.2 % (0.0-0.8); Eosinophils # 0.2 10*3/uL (0.0-0.87); Eosinophils % 1.6 % (0.00-10.9); Hematocrit 27.7 VOL% (42.0-52.0); Hemoglobin 8.6 GM/DL (14.0-18.0); Immature Granulocytes % 0.8 %; Lymphocytes # 0.9 10*3/uL (1.4-4.0); Lymphocytes % 7.4 % (21.2-54.2); Mean Platelet Volume 9.3 FL (9.6-12.0); Monocytes % 6.2 % (1.7-12.7); Neutrophils % 83.8 % (38.7-73.9); Platelet Count 262 T/CUMM (130-400); Red Blood Count 3.42 MC/CUMM (3.8-5.5); Red Cell Distribution Width 17.4 % (9.3-17.3); White Blood Count 12.3 T/CUMM (4-12)
[2019-10-18 05:08] LABS: Calcium 8.1 MG/DL (8.5-10.1); Osmolality,Calculated 276.8 MOS/KG (273-304)
[2019-10-18] MEDS: DEXTROSE 5% NACL 0.45% 1,000 ML IV SCH (05:23)
[2019-10-18] MEDS: PANTOPRAZOLE 40 MG VIAL IV SCH (10:09)
[2019-10-18] MEDS: amLODIPine 5 MG TABLET PO SCH (10:09)
[2019-10-18 11:31] VITALS: BP 169/90
[2019-10-18] MEDS: HYDROmorphone 2 MG/1 ML VIAL IV PRN (11:43)
[2019-10-19] MEDS ORDERED: CHOLECALCIFEROL 5,000 UNIT TABLET PO SCH (09:00)
== END 2019-10-18 15:09 | DRG 326 ==
LOC: N.EDINP 12:00 → N.ED 12:00 → N.TELEN 21:35 → SUATTDRO 10-08 06:40 → N.CVR 10-14 18:54 → N.3E 10-15 15:01
PROVIDERS: ADMIT Hospitalist; ATTEND Hospitalist